=== PATIENT | female | born 1980 | race African-American/Black ===

== ENCOUNTER 2016-11-13 11:44 | Emergency (ER) | payer BC ==
--- NOTE | ~2016-11-13 | CT4 ---
[facility] A Service of [facility] RADIOLOGY TEXT RESULTS PATIENT: MIGUEL YOUNG LOCATION: [facility] : 78 UNIT #: [id number] AGE: [address]: Giuliano Hess MD SEX: F ORDER DR: [id number] [facility] [address] [place], [place] [address] [id number] E MR#: [id number] Acc #: [id number] NAME: MIGUEL YOUNG : 1980 SEX: F STUDY DATE/TIME: 11/13/2016 13:04 UNIT: [facility] ROOM: STUDY DESCRIPTION: CT Abd and Pelv Wo Cont Attending Physician: Vasile Hess M.D. Ordering Physician: Vasile Hess M.D. Primary Care Physician: Nova Floyd M.D. MEDICAL IMAGING REPORT This report is preliminary unless electronic signature is present EXAM CT abdomen and pelvis, 11/13/2016. HISTORY Pain. Sudden left flank pain, urinary frequency for [address] abdomen and pelvis performed without administration of oral or intravenous contrast. This CT exam was performed with one or more of the following radiation dose reduction techniques: automatic exposure control, adjustment of mA and/or kV according to patient size, and iterative reconstruction. COMPARISON STUDIES No prior CTs for comparison. FINDINGS The lung bases are clear. Inferior heart and pericardium unremarkable. Liver enlarged at 23.1 cm in craniocaudal extent. No suspicious focal abnormality seen on noncontrast enhanced images. Status post cholecystectomy. No biliary ductal dilatation. The spleen is within normal limits of size. Pancreas and adrenal glands unremarkable. Right kidney and ureter unremarkable. The left kidney and ureter show no definite acute abnormality. No indication of hydronephrosis or hydroureter. No perinephric inflammatory changes. Study is somewhat degraded overall by CT artifact related to the patient's very large body habitus. CT PELVIS: No inguinal adenopathy. Urinary bladder, uterus, and adnexal regions unremarkable. Lap-Band device in place. The band component is at level of the gastroesophageal junction. The catheter component appears [facility] A Service of [facility] RADIOLOGY TEXT RESULTS PATIENT: MIGUEL OYUNG [facility] #: [id number] : 78 UNIT #: [id number] AGE: [address]: Giuliano Hess MD SEX: F ORDER DR: intact and the port component is implanted in the subcutaneous fat left paracentral anterior abdominal wall. Distal esophagus and stomach otherwise unremarkable. Umbilical hernia containing only fat. Small bowel unremarkable. Appendix normal. Colon unremarkable. Unopacified vascular structures normal. Bony structures show degenerative changes in spine. No acute-appearing bony abnormality. IMPRESSION 1. No clearly acute abnormality is seen in the abdomen or pelvis. 2. There is no evidence of renal calculi or obstruction. No perinephric inflammatory change. 3. Status post cholecystectomy. No ductal dilatation. 4. Hepatic enlargement. Liver measures about 23.1 cm in craniocaudal extent with no suspicious focal abnormality. 5. Alimentary canal including appendix unremarkable. 6. Lap-Band device in place. It appears radiographically intact and normally positioned. 7. Umbilical hernia containing only fat without complication. 8. See remainder of incidental findings in body of report above. Dictated by... Jrody Tena M.D. THIS IS AN ELECTRONICALLY VERIFIED REPORT Jordy Tena M.D. at 11/13/2016 6:48 PM REGINE/grisel TD: 11/13/2016 15:59 JOB #: [id number] MEDICAL IMAGING REPORT Page 1 of 1 COPY
[~2016-11-13 11:44] MED LIST: ADVAIR HFA 45-218 GM INH; HCTZ PO; NEXPLANON68 MG; TRANDATE100 MG PO
[2016-11-13 12:16] LABS: URINE SOURCE CLEAN CATCH
[2016-11-13 12:30] LABS: BASOPHIL# 0.1 X10e3 (0-0.3); BASOPHIL% 1.5 % (0-2.5); EOSINOPHIL% 0.6 % (0.0-7.0); HEMATOCRIT 35.6 % (35.0-45.0); HEMOGLOBIN 11.3 gm/dL (12.0-16.0); LYMPHOCYTE# 1.3 X10e3 (1.0-3.5); LYMPHOCYTE% 24.6 % (17.0-45.0); MEAN CELL VOLUME 80.9 FL (83-96); MEAN CORPUSCULAR HEMOGLOBIN 25.6 PG (28-34); MEAN CORPUSCULAR HGB CONC 31.6 g/dL (30-36); MEAN PLATELET VOLUME 9.3 FL (6.5-11.5); MONOCYTE# 0.5 X10e3 (0-1.0); MONOCYTE% 9.7 % (3.0-12.0); NEUTROPHIL# 3.3 X10e3 (1.5-7.1); NEUTROPHIL% 63.6 % (40-75); PLATELET COUNT 241 X10e3 (140-420); RED CELL DISTRIBUTION WIDTH 15.3 % (11.0-15.5); WHITE BLOOD COUNT 5.1 X10e3 (4.0-10.5)
[2016-11-13 12:32] LABS: URINE APPEARANCE CLOUDY; URINE BILIRUBIN NEG (NEG); URINE BLOOD 3+ (NEG); URINE COLOR DK YELLOW; URINE GLUCOSE NEG (NEG); URINE KETONE NEG (NEG); URINE LEUKOCYTE ESTERASE 3+ (NEG); URINE NITRATE NEG (NEG); URINE PH 5.5 (5-8); URINE PROTEIN TRACE (NEG); URINE SPECIFIC GRAVITY 1.012 (1.003-1.035)
[2016-11-13 12:33] LABS: DIFF IND NO
[2016-11-13 12:34] LABS: CULTURE INDICATED? YES; URBCS1 AUWI INNUM /[HPF] (0-2); URINE BACTERIA AUWI 2+ (NEGATIVE); URINE SQUAMOUS EPITHELIAL CELL OCC /[HPF]; UWBCS1 AUWI 100-200 (0-5)
[2016-11-13 13:02] LABS: BUN/CREATININE RATIO 6.66; CALCIUM SERUM 8.5 mg/dL (8.4-10.2); CREATININE SERUM 0.9 mg/dL (0.6-1.4); GLOM FILT RATE Estimated 94.7 mL/min (>60)
[2016-11-13 13:10] LABS: POTASSIUM 2.7 mmol/L (3.5-5.1)
== END 2016-11-13 15:39 | disposition home or self-care (01) ==
LOC: CED 11:44
PROVIDERS: Emergency Medicine
DX: N30.00 Acute cystitis without hematuria (principal); J45.909 Unspecified asthma, uncomplicated; Z90.49 Acquired absence of other specified parts of digestive tract; Z88.5 Allergy status to narcotic agent; Z88.8 Allergy status to other drugs, medicaments and biological substances; Z79.899 Other long term (current) drug therapy
CPT/HCPCS: 74176; 80048; 81003; 84703; 85025; 87086; 87088; 87186; 96374; 99284; J1885